=== PATIENT | male | born 1945 | race Two or more races ===

== ENCOUNTER 2017-06-26 00:23 | Emergency (ER) | payer OTHER, MEDICAID ==
[~2017-06-26] VITALS: Ht 180.3 cm; Wt 64.9 kg
[~2017-06-26 00:23] MED LIST: ASPI81CH43 PO; ATO40T PO; CLOP75TA28 PO; FERR325T PO; GEMF600T3 PO; LEVEMIR SC; LEVO500T21 PO; METH4PAK PO; METO-169 PO; WARF5TAB PO
[2017-06-26 00:26] VITALS: BP 163/59
[2017-06-26 01:18] LABS: Basophils # (auto) 0.1 uL; Basophils % (auto) 0.9 % (0.0-2.0); Eosinophils # (auto) 0.2 uL; Eosinophils % (auto) 1.8 % (0.0-7.0); Hematocrit 35.5 % (41.0-53.0); Hemoglobin 12.1 g/dL (13.5-17.5); Lymphocytes % (auto) 31.6 % (10.0-50.0); Mean Corpuscular Hemoglobin 30.5 pg (28.0-32.0); Mean Corpuscular Hgb Conc. 34.2 g/dL (32.0-36.0); Mean Corpuscular Volume 89.2 fL (80.0-100.0); Mean Platelet Volume 8.7 fL (6.9-10.8); Monocytes # (auto) 0.7 uL; Monocytes % (auto) 7.3 % (0.0-12.0); Neutrophils # (auto) 5.5 uL; Neutrophils % (auto) 58.4 % (37.0-80.0); Platelet Count (auto) 185 10^3/uL (140-450); Red Cell Distribution Width 15.6 % (11.8-14.3); White Blood Cell 9.4 10^3/uL (4.4-10.8)
[2017-06-26 01:36] LABS: Albumin 2.1 g/dL (3.4-5.0); BUN/Creatinine Ratio 11.1; Calcium 8.1 mg/dL (8.5-10.1); Magnesium 1.9 mg/dL (1.6-2.6); Potassium 3.2 mmol/L (3.5-5.1)
[2017-06-26 01:41] LABS: Bilirubin, Total 0.2 mg/dL (0.2-1.0); Total Protein 6.1 g/dL (6.4-8.2)
[2017-06-26 01:44] LABS: B-Type Natriuretic Peptide 403.59 pg/mL (0-100)
[2017-06-26 01:45] LABS: Temperature: 23.1 C (20.0-25.0)
== END 2017-06-26 06:26 | disposition left against medical advice (07) ==
LOC: ER 00:31
DX: I10 Essential (primary) hypertension (principal); Z53.21 Procedure and treatment not carried out due to patient leaving prior to being seen by health care provider
CPT/HCPCS: 36415; 80053; 83735; 83880; 84484; 85025; 93005

== ENCOUNTER 2017-07-13 21:19 | Inpatient (IN) | payer OTHER, MEDICAID ==
[~2017-07-13] VITALS: Ht 180.3 cm; Wt 67.9 kg
[2017-07-13 23:03] LABS: Basophils # (auto) 0.1 uL; Basophils % (auto) 0.4 % (0.0-2.0); Eosinophils # (auto) 0.1 uL; Eosinophils % (auto) 0.7 % (0.0-7.0); Hematocrit 27.4 % (41.0-53.0); Lymphocytes # (auto) 2.1 uL; Lymphocytes % (auto) 17.9 % (10.0-50.0); Mean Corpuscular Hemoglobin 29.6 pg (28.0-32.0); Mean Corpuscular Hgb Conc. 32.9 g/dL (32.0-36.0); Mean Corpuscular Volume 89.9 fL (80.0-100.0); Mean Platelet Volume 8.6 fL (6.9-10.8); Monocytes # (auto) 0.9 uL; Monocytes % (auto) 7.4 % (0.0-12.0); Neutrophils # (auto) 8.5 uL; Neutrophils % (auto) 73.6 % (37.0-80.0); Nucleated Red Blood Cells % 0.1 %; Platelet Count (auto) 301 10^3/uL (140-450); Red Cell Distribution Width 14.9 % (11.8-14.3); White Blood Cell 11.6 10^3/uL (4.4-10.8)
[2017-07-13 23:20] LABS: Albumin 2.2 g/dL (3.4-5.0); Calcium 8.1 mg/dL (8.5-10.1); Potassium 3.5 mmol/L (3.5-5.1)
[2017-07-13 23:23] LABS: Bilirubin, Total 0.3 mg/dL (0.2-1.0); Total Protein 6.8 g/dL (6.4-8.2)
[2017-07-13 23:40] LABS: INR 2.13 (0.9-1.15); Partial Thromboplastin Time 44.8 sec (22.64-33.71); Prothrombin Time 23.4 sec (9.37-12.3)
[2017-07-14] MEDS ORDERED: SODIUM CHLORIDE 0.9% 1,000 ML IV ONE (02:32)
[2017-07-14 03:43] LABS: Urine Bilirubin Negative (Negative); Urine Blood TRACE /uL (Negative); Urine Color Yellow (Yellow); Urine Glucose 2+ mg/dL (Normal); Urine Hyaline Cast MOD /lpf (0 - 2); Urine Ketone Negative (Negative); Urine Nitrite Negative (Negative); Urine RBC 3 /hpf (0 - 3); Urine Urobilinogen Normal (Negative)
[2017-07-14] MEDS ORDERED: ACETAMINOPHEN 325 MG TAB PO PRN (03:45)
[2017-07-14] MEDS ORDERED: NITROGLYCERIN 0.4 MG SL TAB SL PRN (03:45)
[2017-07-14] MEDS ORDERED: MORPHINE SULFATE 10 MG/ML INJ 1ML SDV IV PRN (03:45)
[2017-07-14] MEDS ORDERED: ONDANSETRON HCL 4 MG/2 ML VIAL IV PRN (03:45)
[2017-07-14] MEDS ORDERED: DEXTROSE (50%) 50ML SYRG IV PRN (03:45)
[2017-07-14] MEDS ORDERED: TEMAZEPAM 15 MG CAP PO PRN (03:45)
[2017-07-14] MEDS: SODIUM CHLORIDE 0.9% 1,000 ML IV SCH ×2 (04:12→20:59)
[2017-07-14 05:10] VITALS: BP 152/57
[2017-07-14 05:15] VITALS: BP 152/57
[2017-07-14] MEDS: ACCU-CHEK COMFORT CURVE STRIP VI SCH ×4 (06:15→23:27)
[2017-07-14] MEDS: InsuLIN REG 1unit/0.01ml Soln (100units/ml) SC SCH ×4 (06:20→23:27)
[2017-07-14 08:00] VITALS: BP 124/56
[2017-07-14 08:34] LABS: Hematocrit 25.3 % (41.0-53.0); Hemoglobin 8.6 g/dL (13.5-17.5)
[2017-07-14] MEDS: FERROUS SULFATE 325 MG TAB PO SCH ×2 (09:41→18:30)
[2017-07-14] MEDS: FAMOTIDINE 20 MG TAB PO SCH ×2 (09:41→21:23)
[2017-07-14] MEDS: METOPROLOL TARTRATE 50 MG TAB PO SCH ×2 (09:41→21:24)
[2017-07-14] MEDS: cefTRIAXone 1GM/50ML D5W 50 ML IV SCH (09:42)
[2017-07-14] MEDS ORDERED: BUSP5TAB51 PO (11:16)
[2017-07-14] MEDS ORDERED: TAMS0.4C36 PO (11:33)
[2017-07-14] MEDS ORDERED: MEMA5TAB2 PO (11:34)
[2017-07-14] MEDS ORDERED: POTASSIUM CHL 10% (20 MEQ/15ML) 15ml ORAL SOLN PO ONE (15:30)
[2017-07-14] MEDS ORDERED: WARFARIN SODIUM 2.5 MG TAB PO ONE (17:00)
[2017-07-14 20:06] LABS: INR 1.74 (0.9-1.15); Prothrombin Time 19.1 sec (9.37-12.3)
[2017-07-14 21:00] VITALS: BP 153/57
[2017-07-14] MEDS: ATORVASTATIN 20 MG TAB PO SCH (21:23)
[2017-07-14 22:00] VITALS: BP 153/57
[2017-07-15] VITALS (8 sets, daily range): BP systolic 109–164; BP diastolic 43–72
[2017-07-15] MEDS: ACCU-CHEK COMFORT CURVE STRIP VI SCH ×4 (05:24→23:06)
[2017-07-15] MEDS: InsuLIN REG 1unit/0.01ml Soln (100units/ml) SC SCH ×4 (05:24→23:06)
[2017-07-15 06:20] LABS: INR 1.52 (0.9-1.15); Partial Thromboplastin Time 40.8 sec (22.64-33.71); Prothrombin Time 16.6 sec (9.37-12.3)
[2017-07-15 06:22] LABS: Basophils # (auto) 0 uL; Eosinophils # (auto) 0.1 uL; Hematocrit 22.6 % (41.0-53.0); Hemoglobin 7.7 g/dL (13.5-17.5); Lymphocytes # (auto) 2.3 uL; Nucleated Red Blood Cells % 0.1 %
[2017-07-15 06:27] LABS: Albumin 1.9 g/dL (3.4-5.0); BUN/Creatinine Ratio 26.2; Calcium 7.8 mg/dL (8.5-10.1); Potassium 3.3 mmol/L (3.5-5.1)
[2017-07-15 06:30] LABS: Bilirubin, Total 0.2 mg/dL (0.2-1.0); Total Protein 6.1 g/dL (6.4-8.2)
[2017-07-15 06:31] LABS: Basophils % (auto) 0.2 % (0.0-2.0); Eosinophils % (auto) 0.6 % (0.0-7.0); Lymphocytes % (auto) 23.1 % (10.0-50.0); Mean Corpuscular Hemoglobin 30.4 pg (28.0-32.0); Mean Corpuscular Hgb Conc. 33.9 g/dL (32.0-36.0); Mean Corpuscular Volume 89.6 fL (80.0-100.0); Mean Platelet Volume 8.6 fL (6.9-10.8); Monocytes # (auto) 0.8 uL; Monocytes % (auto) 7.4 % (0.0-12.0); Neutrophils % (auto) 68.7 % (37.0-80.0); Platelet Count (auto) 246 10^3/uL (140-450); Red Cell Distribution Width 15.2 % (11.8-14.3); White Blood Cell 10.2 10^3/uL (4.4-10.8)
[2017-07-15] MEDS: FAMOTIDINE 20 MG TAB PO SCH ×2 (09:36→21:15)
[2017-07-15] MEDS: cefTRIAXone 1GM/50ML D5W 50 ML IV SCH (09:36)
[2017-07-15] MEDS: FERROUS SULFATE 325 MG TAB PO SCH ×2 (09:40→19:40)
[2017-07-15] MEDS: METOPROLOL TARTRATE 50 MG TAB PO SCH (09:44)
[2017-07-15] MEDS ORDERED: POTASSIUM CHL 10% (20 MEQ/15ML) 15ml ORAL SOLN PO ONE (11:15)
[2017-07-15] MEDS: SODIUM CHLORIDE 0.9% 1,000 ML IV SCH (15:55)
[2017-07-15] MEDS ORDERED: WARFARIN SODIUM 2.5 MG TAB PO ONE (17:00)
[2017-07-15] MEDS: ATORVASTATIN 20 MG TAB PO SCH (21:15)
[2017-07-16] MEDS: InsuLIN REG 1unit/0.01ml Soln (100units/ml) SC SCH ×4 (05:32→22:28)
[2017-07-16] MEDS: ACCU-CHEK COMFORT CURVE STRIP VI SCH ×4 (05:33→22:28)
[2017-07-16] MEDS: SODIUM CHLORIDE 0.9% 1,000 ML IV SCH (05:40)
[2017-07-16 07:37] LABS: INR 1.24 (0.9-1.15); Partial Thromboplastin Time 37.3 sec (22.64-33.71); Prothrombin Time 13.5 sec (9.37-12.3)
[2017-07-16 08:00] VITALS: BP 109/43
[2017-07-16] MEDS: FERROUS SULFATE 325 MG TAB PO SCH ×2 (08:14→18:14)
[2017-07-16] MEDS: cefTRIAXone 1GM/50ML D5W 50 ML IV SCH (08:16)
[2017-07-16 08:27] LABS: Basophils # (auto) 0 uL; Basophils % (auto) 0.3 % (0.0-2.0); Eosinophils # (auto) 0.1 uL; Eosinophils % (auto) 1.4 % (0.0-7.0); Hematocrit 27.9 % (41.0-53.0); Hemoglobin 9.3 g/dL (13.5-17.5); Lymphocytes # (auto) 2.4 uL; Lymphocytes % (auto) 30.5 % (10.0-50.0); Mean Corpuscular Hemoglobin 30.5 pg (28.0-32.0); Mean Corpuscular Hgb Conc. 33.3 g/dL (32.0-36.0); Mean Corpuscular Volume 91.5 fL (80.0-100.0); Mean Platelet Volume 8.3 fL (6.9-10.8); Monocytes # (auto) 0.7 uL; Monocytes % (auto) 8.6 % (0.0-12.0); Neutrophils # (auto) 4.7 uL; Neutrophils % (auto) 59.2 % (37.0-80.0); Platelet Count (auto) 232 10^3/uL (140-450); Red Cell Distribution Width 14.8 % (11.8-14.3)
[2017-07-16 08:38] LABS: BUN/Creatinine Ratio 22.6; Calcium 8.1 mg/dL (8.5-10.1); Potassium 3.3 mmol/L (3.5-5.1)
[2017-07-16 08:57] VITALS: BP 140/77
[2017-07-16] MEDS: FAMOTIDINE 20 MG TAB PO SCH ×2 (10:33→22:27)
[2017-07-16] MEDS: HYDROcodone-ACET 5/325MG TAB PO PRN ×2 (10:40→16:40)
[2017-07-16 12:55] VITALS: BP 155/59
[2017-07-16] MEDS: SOD CHL 0.45% WITH 20MEQ KCL 1,000 ML IV SCH (13:45)
[2017-07-16 16:43] VITALS: BP 138/67
[2017-07-16] MEDS ORDERED: WARFARIN SODIUM 5 MG TAB PO ONE (17:00)
[2017-07-16 22:02] VITALS: BP 155/78
[2017-07-16] MEDS: ATORVASTATIN 20 MG TAB PO SCH (22:27)
[2017-07-16] MEDS: Boost Glucose Control 8 Ounces PO SCH (22:27)
[2017-07-16] MEDS: PRO-STAT 64 30ML PO SCH (22:28)
[2017-07-17] MEDS: SOD CHL 0.45% WITH 20MEQ KCL 1,000 ML IV SCH ×2 (03:05→15:06)
[2017-07-17 05:33] VITALS: BP 142/81
[2017-07-17] MEDS: ACCU-CHEK COMFORT CURVE STRIP VI SCH ×3 (06:00→17:41)
[2017-07-17] MEDS: InsuLIN REG 1unit/0.01ml Soln (100units/ml) SC SCH ×3 (06:00→17:37)
[2017-07-17] MEDS: Boost Glucose Control 8 Ounces PO SCH ×2 (06:23→14:00)
[2017-07-17 07:30] VITALS: BP 109/43
[2017-07-17 07:30] LABS: Basophils # (auto) 0 uL; Basophils % (auto) 0.4 % (0.0-2.0); Eosinophils # (auto) 0.2 uL; Eosinophils % (auto) 2.1 % (0.0-7.0); Hematocrit 27.3 % (41.0-53.0); Hemoglobin 9.3 g/dL (13.5-17.5); Lymphocytes # (auto) 2.4 uL; Lymphocytes % (auto) 31.5 % (10.0-50.0); Mean Corpuscular Hemoglobin 30.6 pg (28.0-32.0); Mean Corpuscular Hgb Conc. 34.2 g/dL (32.0-36.0); Mean Corpuscular Volume 89.6 fL (80.0-100.0); Mean Platelet Volume 8.4 fL (6.9-10.8); Monocytes # (auto) 0.8 uL; Monocytes % (auto) 9.7 % (0.0-12.0); Neutrophils # (auto) 4.4 uL; Neutrophils % (auto) 56.3 % (37.0-80.0); Nucleated Red Blood Cells % 0.1 %; Platelet Count (auto) 237 10^3/uL (140-450); Red Cell Distribution Width 15.1 % (11.8-14.3); White Blood Cell 7.8 10^3/uL (4.4-10.8)
[2017-07-17 07:46] LABS: INR 1.21 (0.9-1.15); Partial Thromboplastin Time 35.7 sec (22.64-33.71); Prothrombin Time 13.2 sec (9.37-12.3)
[2017-07-17] MEDS: FERROUS SULFATE 325 MG TAB PO SCH ×2 (07:57→17:40)
[2017-07-17 08:13] LABS: Albumin 1.9 g/dL (3.4-5.0); BUN/Creatinine Ratio 17.8; Bilirubin, Total 0.3 mg/dL (0.2-1.0); Calcium 7.9 mg/dL (8.5-10.1); Potassium 3.2 mmol/L (3.5-5.1); Total Protein 6.3 g/dL (6.4-8.2)
[2017-07-17 09:00] VITALS: BP 137/76
[2017-07-17] MEDS: cefTRIAXone 1GM/50ML D5W 50 ML IV SCH (09:04)
[2017-07-17] MEDS: PRO-STAT 64 30ML PO SCH (10:13)
[2017-07-17] MEDS: FAMOTIDINE 20 MG TAB PO SCH (10:13)
[2017-07-17] MEDS ORDERED: CEPH-37 PO (11:56)
[2017-07-17 13:00] VITALS: BP 126/68
[2017-07-17] MEDS: HYDROcodone-ACET 5/325MG TAB PO PRN (16:17)
[2017-07-17] MEDS ORDERED: WARFARIN SODIUM 5 MG TAB PO ONE (17:00)
[2017-07-17 17:19] VITALS: BP 128/73
[2017-07-17 17:50] VITALS: BP 128/73
== END 2017-07-17 21:28 | disposition home or self-care (01) | DRG 813 ==
LOC: ER 21:29 → TELE 21:30 → TELE-WESTW 07-14 05:10
PROVIDERS: ADMIT Internal Medicine; ATTEND Nurse Practitioner Acute Care
PROC: 30233N1 Transfusion of Nonautologous Red Blood Cells into Peripheral Vein, Percutaneous Approach (ICD-10-PCS; principal; 2017-07-15)
DX: D68.32 Hemorrhagic disorder due to extrinsic circulating anticoagulants (principal); E43 Unspecified severe protein-calorie malnutrition; G93.41 Metabolic encephalopathy; D68.69 Other thrombophilia; E11.22 Type 2 diabetes mellitus with diabetic chronic kidney disease; I42.9 Cardiomyopathy, unspecified; E87.1 Hypo-osmolality and hyponatremia; I13.0 Hypertensive heart and chronic kidney disease with heart failure and stage 1 through stage 4 chronic kidney disease, or unspecified chronic kidney disease; I50.9 Heart failure, unspecified; N39.0 Urinary tract infection, site not specified; R04.0 Epistaxis; G30.9 Alzheimer's disease, unspecified; F02.80 Dementia in other diseases classified elsewhere, unspecified severity, without behavioral disturbance, psychotic disturbance, mood disturbance, and anxiety; E86.0 Dehydration; D50.9 Iron deficiency anemia, unspecified; E78.5 Hyperlipidemia, unspecified; E87.6 Hypokalemia; F17.210 Nicotine dependence, cigarettes, uncomplicated; I44.1 Atrioventricular block, second degree; I73.9 Peripheral vascular disease, unspecified; J43.9 Emphysema, unspecified; N18.9 Chronic kidney disease, unspecified; N40.0 Benign prostatic hyperplasia without lower urinary tract symptoms; T45.515A Adverse effect of anticoagulants, initial encounter; Z80.42 Family history of malignant neoplasm of prostate; Z82.49 Family history of ischemic heart disease and other diseases of the circulatory system; Z82.5 Family history of asthma and other chronic lower respiratory diseases; Z83.3 Family history of diabetes mellitus; Z86.73 Personal history of transient ischemic attack (TIA), and cerebral infarction without residual deficits; Z95.0 Presence of cardiac pacemaker; Z68.20 Body mass index [BMI] 20.0-20.9, adult; I25.2 Old myocardial infarction
CPT/HCPCS: 36415; 70450; 71010; 80048; 80053; 81001; 82270; 82962; 83735; 84484; 85014; 85018; 85025; 85610; 85730; 86850; 86900; 86901; 86920; 93005; 96361; 96365; J0696; J1815